=== PATIENT | male | born 1975 | race Caucasian/White ===

== ENCOUNTER 2017-01-14 13:53 | Emergency (ER) | payer OTHER ==
[~2017-01-14] VITALS: Ht 167.6 cm; Wt 68.0 kg
[~2017-01-14 13:53] MED LIST: ANAPROX DS550 M1 PO; BLEPH-105 ML RIGHT EYE; FLEXERIL10 MG PO; MOTRIN600 MG PO; MOTRIN800 MG PO; NO HOME MEDS; NOHOMEMEDS; NORCO 7.5/321 TABLET PO; PROMETHAZINE HC25 M1 PO; ZOFRAN ODT4 MG PO
[2017-01-14] MEDS ORDERED: DOXYCYCLINE MO100 MG PO (17:07)
[2017-01-14 17:39] VITALS: BP 130/87
== END 2017-01-14 17:41 | disposition home or self-care (01) ==
LOC: EME 13:53
PROC: 0HQGXZZ Repair Left Hand Skin, External Approach (ICD-10-PCS; principal; 2017-01-14)
DX: S61.211A Laceration without foreign body of left index finger without damage to nail, initial encounter (principal); W20.8XXA Other cause of strike by thrown, projected or falling object, initial encounter; Y93.H2 Activity, gardening and landscaping; Y92.007 Garden or yard of unspecified non-institutional (private) residence as the place of occurrence of the external cause; Z88.0 Allergy status to penicillin; F17.200 Nicotine dependence, unspecified, uncomplicated
CPT/HCPCS: 73130; 99281; 99284